=== PATIENT | male | born 1940 | race Caucasian/White ===

== ENCOUNTER → 2017-03-29 | Emergency (ER) | payer BC, MEDICARE ==
[~2017-03-29] VITALS: Ht 165.1 cm; Wt 77.1 kg
[2017-03-29 11:52] VITALS: BP 135/69
== END | disposition home or self-care (01) ==
LOC: ER 11:37
DX: T16.1XXA Foreign body in right ear, initial encounter (principal); E78.00 Pure hypercholesterolemia, unspecified; I10 Essential (primary) hypertension; E11.9 Type 2 diabetes mellitus without complications; X58.XXXA Exposure to other specified factors, initial encounter; Y93.89 Activity, other specified; Y92.89 Other specified places as the place of occurrence of the external cause; Y99.8 Other external cause status
CPT/HCPCS: A4606; Z7610